=== PATIENT | female | born 1945 | race Caucasian/White ===

== ENCOUNTER 2016-08-21 23:06 | Day surgery (SDC) | payer MEDICARE, BC ==
[2016-08-21] MEDS ORDERED: Morphine INJ* 4 MG/ML 1 ML CARPUJECT IV ONE ×2 (23:27→23:43)
[2016-08-21] MEDS ORDERED: NS 0.9% 1000 ML* 1,000 ML IV ONE (23:43)
[2016-08-21] MEDS ORDERED: Ondansetron INJ* 2 MG/ML VIAL IV ONE (23:43)
[2016-08-21 23:52] LABS: Urine Bilirubin Negative (Negative); Urine Glucose Negative (Negative); Urine Nitrite Negative (Negative)
[2016-08-22 00:17] LABS: ALT 11 U/L (7-52); AST 18 U/L (13-39); Albumin 4.1 g/dL (3.2-5.2); Alkaline Phosphatase 79 U/L (34-104); Anion Gap 9 mmol/L (2-11); BUN/Creatinine Ratio 15.3 (8-20); Blood Urea Nitrogen 17 mg/dL (6-24); C Reactive Protein < 1.00 mg/L (< 5.00); CO2 Carbon Dioxide 24 mmol/L (22-32); Calcium 9.8 mg/dL (8.6-10.3); Chloride 104 mmol/L (101-111); EGFR African American 62.5 (>60); EGFR Non-African American 48.6 (>60); Globulin 2.6 g/dL (2-4); Glucose 125 mg/dL (70-100); Lipase 52 U/L (11.0-82.0); Potassium 3.6 mmol/L (3.5-5.0); Sodium 137 mmol/L (133-145); Total Protein 6.7 g/dL (6.4-8.9)
[2016-08-22 00:19] LABS: Hematocrit 36 % (35-47); Mean Corpuscular HGB Conc 34 g/dl (31-36); Mean Corpuscular Hemoglobin 39 pg (27-31); Mean Corpuscular Volume 116 fL (80-97); Mean Platelet Volume 8 um3 (7.4-10.4); Red Blood Count 3.09 10^6/ul (4.0-5.4); Red Cell Distribution Width 16 % (10.5-15); White Blood Count 5.3 10^3/ul (3.5-10.8)
[2016-08-22 00:30] LABS: Add Diff/Slide Review? Slide Review Added; Comments Flag Yes
--- NOTE | 2016-08-22 00:58 | ED ---
I, Oh,Soohcolt, scribed for Marck Anderson MD on 08/21/16 at 2349 . Abdominal Pain/Female - HPI Summary HPI Summary: This 71 y/o female presents to ED via for acute 1010 left sided abd pain since 2144 PM today. Pt was watching Superbowl at the time of onset. Pain has been constant since then. She reports mild nausea, but denies vomiting, fever, or any dysuria. PMHx does include UC that has been well controlled with Entyvio. Pt denies any recent bout. Primary care involves Dr. Figueroa. She is nondrinker and nonsmoker. - History of Current Complaint Chief Complaint: EDFlankPain Stated Complaint: LEFT FLANK PAIN Time Seen by Provider: 08/21/16 23:38 Hx Obtained From: Patient, Medical Records ?: No Onset/Duration: Still Present Timing: Constant Pain Intensity: 10 Pain Scale Used: 0-10 Numeric Location: Discrete At: RLQ, Discrete At: LUQ Radiates: No Character: Sharp Aggravating Factor(s): Nothing Alleviating Factor(s): Nothing Associated Signs and Symptoms: Positive: Nausea. Negative: Fever, Vomiting Allergies/Adverse Reactions: Allergies Allergy/AdvReac Type Severity Reaction Status Date / Time NSAIDs Allergy N/V- Verified 08/19/16 10:03 ULCERATIVE COLITIS Sulfasalazine Allergy MADE Verified 08/19/16 10:03 [From Azulfidine] ULCERATIVE COLITIS WORSE SEASONAL HAYFEVER Allergy Unknown Uncoded 08/19/16 10:03 Reaction Details PMH/Surg Hx/FS Hx/Imm Hx GI History: Reports: Other GI Disorders - ULCERATIVE COLITIS, RECENT BOUT, TAKING PREDNISONE Musculoskeletal History: Reports: Hx Arthritis - OSTEOARTHRITIS Sensory History: Reports: Hx Cataracts, Hx Contacts or Glasses - GLASSES Denies: Hx Hearing Aid Opthamlomology History: Reports: Hx Cataracts, Hx Contacts or Glasses - GLASSES - Cancer History Hx Chemotherapy: No Hx Radiation Therapy: Yes - Surgical History Surgery Procedure, Year, and Place: 2003 LEFT BREAST LUMPECTOMY X 2, CMCTONSILLECTOMY AGE 15, [place], [place]'S PILONIDAL CYST REMOVED, [place], [place] Hx Anesthesia Reactions: No Infectious Disease History: No Infectious Disease History: Denies: Traveled Outside the [place] in Last 30 Days - Family History Known Family History: Negative: Other - breast CA - Social History Lives: With Family Alcohol Use: None Alcohol Amount: 2-3 drinks/week Hx Substance Use: No Substance Use Type: Reports: None Hx Tobacco Use: No Smoking Status (MU): Never Smoked Tobacco Type: Cigarettes Amount Used/How Often: 1/4 PPD Review of Systems Negative: Fever Positive: Abdominal Pain - left sided, Nausea. Negative: Vomiting Negative: dysuria Negative: Anxious, Depressed All Other Systems Reviewed And Are Negative: Yes Physical Exam Triage Information Reviewed: Yes Vital Signs On Initial Exam: Initial Vitals Temp Pulse Resp BP Pulse Ox 97.3 F 88 22 116/58 100 08/21/16 23:11 08/21/16 23:11 08/21/16 23:11 08/21/16 23:11 08/21/16 23:11 Vital Signs Reviewed: Yes Appearance: Positive: Well-Appearing, Pain Distress - moderately uncomfortable Skin: Positive: Warm Head/Face: Positive: Normal Head/Face Inspection Eyes: Positive: DAVION ENT: Positive: Hearing grossly normal Neck: Positive: Supple Respiratory/Lung Sounds: Positive: Clear to Auscultation, Breath Sounds Present Cardiovascular: Positive: RRR Abdomen Description: Positive: Nontender, Soft Bowel Sounds: Positive: Present Musculoskeletal: Positive: Strength/ROM Intact Neurological: Positive: Alert, Oriented to Person Place, Time Diagnostics - Vital Signs Vital Signs Temp Pulse Resp BP Pulse Ox 08/21/16 23:11 97.3 F 88 22 116/58 100 - Laboratory Lab Results: Lab Results 08/21/16 08/21/16 08/21/16 Range/Units 23:30 23:30 23:30 WBC 5.3 (3.5-10.8) 10^3/ul RBC 3.09 L (4.0-5.4) 10^6/ul Hgb 12.0 (12.0-16.0) g/dl Hct 36 (35-47) % MCV 116 H (80-97) fL MCH 39 H (27-31) pg MCHC 34 (31-36) g/dl RDW 16 H (10.5-15) % Plt Count 341 (150-450) 10^3/ul MPV 8 (7.4-10.4) um3 Neut % (Auto) 66.4 (38-83) % Lymph % (Auto) 23.5 L (25-47) % Guthrie % (Auto) 5.1 (1-9) % Eos % (Auto) 4.3 (0-6) % Baso % (Auto) 0.7 (0-2) % Absolute Neuts (auto) 3.5 (1.5-7.7) 10^3/ul Absolute Lymphs (auto) 1.2 (1.0-4.8) 10^3/ul Absolute Monos (auto) 0.3 (0-0.8) 10^3/ul Absolute Eos (auto) 0.2 (0-0.6) 10^3/ul Absolute Basos (auto) 0 (0-0.2) 10^3/ul Absolute Nucleated RBC 0.03 10^3/ul Nucleated RBC % 0.5 Sodium 137 (133-145) mmol/L Potassium 3.6 (3.5-5.0) mmol/L Chloride 104 (101-111) mmol/L Carbon Dioxide 24 (22-32) mmol/L Anion Gap 9 (2-11) mmol/L BUN 17 (6-24) mg/dL Creatinine 1.11 H (0.51-0.95) mg/dL Est GFR ( Amer) 62.5 (>60) Est GFR (Non-Af Amer) 48.6 (>60) BUN/Creatinine Ratio 15.3 (8-20) Glucose 125 H (70-100) mg/dL Lactic Acid 2.0 (0.5-2.0) mmol/L Calcium 9.8 (8.6-10.3) mg/dL Magnesium 2.0 (1.9-2.7) mg/dL Total Bilirubin 0.70 (0.2-1.0) mg/dL AST 18 (13-39) U/L ALT 11 (7-52) U/L Alkaline Phosphatase 79 (34-104) U/L C-Reactive Protein < 1.00 (< 5.00) mg/L Total Protein 6.7 (6.4-8.9) g/dL Albumin 4.1 (3.2-5.2) g/dL Globulin 2.6 (2-4) g/dL Albumin/Globulin Ratio 1.6 (1-3) Lipase 52 (11.0-82.0) U/L Urine Color Urine Appearance Urine pH (5-9) Ur Specific [place] (1.010-1.030) Urine Protein (Negative) Urine Ketones (Negative) Urine Blood (Negative) Urine Nitrate (Negative) Urine Bilirubin (Negative) Urine Urobilinogen (Negative) Ur Leukocyte Esterase (Negative) Urine Glucose (Negative) 08/21/16 Range/Units 23:40 WBC (3.5-10.8) 10^3/ul RBC (4.0-5.4) 10^6/ul Hgb (12.0-16.0) g/dl Hct (35-47) % MCV (80-97) fL MCH (27-31) pg MCHC (31-36) g/dl RDW (10.5-15) % Plt Count (150-450) 10^3/ul MPV (7.4-10.4) um3 Neut % (Auto) (38-83) % Lymph % (Auto) (25-47) % Guthrie % (Auto) (1-9) % Eos % (Auto) (0-6) % Baso % (Auto) (0-2) % Absolute Neuts (auto) (1.5-7.7) 10^3/ul Absolute Lymphs (auto) (1.0-4.8) 10^3/ul Absolute Monos (auto) (0-0.8) 10^3/ul Absolute Eos (auto) (0-0.6) 10^3/ul Absolute Basos (auto) (0-0.2) 10^3/ul Absolute Nucleated RBC 10^3/ul Nucleated RBC % Sodium (133-145) mmol/L Potassium (3.5-5.0) mmol/L Chloride (101-111) mmol/L Carbon Dioxide (22-32) mmol/L Anion Gap (2-11) mmol/L BUN (6-24) mg/dL Creatinine (0.51-0.95) mg/dL Est GFR ( Amer) (>60) Est GFR (Non-Af Amer) (>60) BUN/Creatinine Ratio (8-20) Glucose (70-100) mg/dL Lactic Acid (0.5-2.0) mmol/L Calcium (8.6-10.3) mg/dL Magnesium (1.9-2.7) mg/dL Total Bilirubin (0.2-1.0) mg/dL AST (13-39) U/L ALT (7-52) U/L Alkaline Phosphatase (34-104) U/L C-Reactive Protein (< 5.00) mg/L Total Protein (6.4-8.9) g/dL Albumin (3.2-5.2) g/dL Globulin (2-4) g/dL Albumin/Globulin Ratio (1-3) Lipase (11.0-82.0) U/L Urine Color Straw Urine Appearance Clear Urine pH 8.0 (5-9) Ur Specific [place] 1.008 L (1.010-1.030) Urine Protein Negative (Negative) Urine Ketones Negative (Negative) Urine Blood Negative (Negative) Urine Nitrate Negative (Negative) Urine Bilirubin Negative (Negative) Urine Urobilinogen Negative (Negative) Ur Leukocyte Esterase Negative (Negative) Urine Glucose Negative (Negative) Result Diagrams: 08/21/16 23:30 08/21/16 23:30 Lab Statement: Any lab studies that have been ordered have been reviewed, and results considered in the medical decision making process. - CT Ab/P CT Interpretation: Positive (See Comments) - Right ovarian 3.4 cm complex cystic process. If clinically indicated recommend correcation with a pelvic US. Homero left hydronephrosis with a 4 mm stone in the distal left ureter at the left UVJ. CT Interpretation Completed By: Radiologist Re-Evaluation - Re-Evaluation First Eval Re-Evaluation Time: 05:42 Comment: in room to update pt and on plan of care involving urologist 's consultation. Pt's pain was resolved with morphine, but pain has come back at this moment. Zofran given to control pt's n/v. Abdominal Pain Fem Course/Dx - Course Course Of Treatment: This 71 y/o female presents to ED with chief complaint of left sided abd pain since 2144 PM tonight. Pain is rated 10/10. Bloodwork is wnl except for elevated creatinine of 1.11. CT Ab/P indicates 4 mm UVJ stone at left ureter as well as incidental finding of 3.4 cm complex cystic process at right ovary. UA is wnl. Urologist consultation is pending at this point. - Diagnoses Provider Diagnoses: Renal colic - Provider Notifications Instructed by Provider To: Admit As Inpatient Discharge - Discharge Plan Condition: Stable Disposition: ADMITTED TO [facility] The documentation as recorded by the Jorje theodore Soohyun accurately reflects the service I personally performed and the decisions made by me, Marck Anderson MD.
[2016-08-22 01:08] LABS: Macrocytosis 2+
[2016-08-22] MEDS ORDERED: Iodixanol* (CONTRAST) 320 MG/ML 100 ML SDV IV ONE (01:47)
[2016-08-22] MEDS ORDERED: Ondansetron INJ* 2 MG/ML VIAL IV ONE (02:41)
[2016-08-22] MEDS ORDERED: Morphine INJ* 4 MG/ML 1 ML CARPUJECT IV ONE (02:42)
[2016-08-22] MEDS ORDERED: Ondansetron INJ* 2 MG/ML VIAL ONE ×2 (02:43→10:29)
[2016-08-22] MEDS ORDERED: NS 0.9% 1000 ML* 1,000 ML IV ONE (03:30)
[2016-08-22] MEDS ORDERED: Ketorolac INJ* 30 MG/ML 1 ML VIAL IV PUSH ONE (03:30)
[2016-08-22] MEDS ORDERED: Metoclopramide IV* 5 MG/ML 2 ML VIAL IV ONE (05:40)
--- NOTE | 2016-08-22 07:49 | RAD ---
CLINICAL HISTORY: Left lower quadrant pain COMPARISON: None TECHNIQUE: Contrast enhanced CT examination of the abdomen and pelvis from the lung bases through the initial tuberosities. The patient received 79 mL Omnipaque 300 intravenously prior to imaging.The patient received oral contrast as well prior to imaging. FINDINGS: VISUALIZED LUNG BASES: The visualized lung bases are grossly clear. There is no pleural effusion. ABDOMEN AND PELVIS: The liver, spleen, pancreas and adrenal glands are grossly normal in appearance. The gallbladder is normal. The right kidney is normal in appearance without focal mass, calcification or signs of hydronephrosis. There is mild to moderate left-sided hydronephrosis with moderate left perinephric stranding at the left ureterovesical junction there is a 4 mm calcification (axial image 69 and coronal image 55). On the delayed phase imaging there is delayed excretion in the left ureter and collecting system relative to the right. The oral contrast has only progressed as far as the proximal small bowel which limits evaluation of the distal small bowel and colon. The small and large bowel are not distended. The patient's normal appendix is identified in the right lower quadrant (coronal image 39). There is no gross retroperitoneal or mesenteric lymphadenopathy. In the right adnexa there is a 3 cm fluid density structure (axial image 62). Otherwise the pelvic viscera is normal in appearance. The mildly calcified abdominal aorta and iliac arteries are normal in course and diameter. Degenerative changes include multilevel loss of intervertebral disc height involving the lower thoracic and lumbar spine.There are no sinister bone lesions. IMPRESSION: 1. Mild to moderate left-sided hydronephrosis, perinephric stranding and delayed urinary excretion with a 4 mm calcification located at the left ureterovesical junction. 2. 3 cm fluid density structure in the right pelvic adnexa which could represent an ovarian or paraovarian cyst. The chronicity of this structure is unknown in the absence of prior pelvic imaging and this is considered an abnormal finding in a postmenopausal woman. On a nonemergent basis further characterization can be made with pelvic ultrasound. 3. Additional chronic and degenerative changes as described in the body of the report.
[2016-08-22] MEDS ORDERED: cefTRIAXone(*) 2 GM ADDV.VIAL IVPB ONE (10:09)
[2016-08-22] MEDS ORDERED: Iohexol 180 (CONTRAST) 10 ML SDV IV ONE (10:23)
[2016-08-22] MEDS ORDERED: fentaNYL* 50 MCG/ML 2 ML VIAL (100 MCG VIAL) ONE (10:28)
[2016-08-22] MEDS ORDERED: Midazolam* 1 MG/ML 2 ML VIAL (2 MG) ONE (10:28)
[2016-08-22] MEDS ORDERED: Propofol* 10 MG/ML 20 ML BTL IV PUSH ONE (10:29)
[2016-08-22] MEDS ORDERED: Dexamethasone IV* 4 MG/ML 1 ML (4 MG) ONE (10:29)
[2016-08-22] MEDS ORDERED: Famotidine IV* 10 MG/ML 2 ML (20 mg) ONE (10:29)
[2016-08-22] MEDS ORDERED: Ketorolac INJ* 30 MG/ML 1 ML VIAL ONE (10:29)
[2016-08-22] MEDS ORDERED: Gentamicin ADULT (*) 140 MG in NS 0.9% 100 ML* 100 ML IVPB ONE (11:00)
[2016-08-22 12:53] VITALS: BP 102/64
--- NOTE | 2016-08-22 20:25 | OP ---
DATE OF OPERATION: 08/22/16 - [facility] DATE OF : [birth year] - AGE: 71 years, Female. SURGEON: Rodolfo Fernández MD ANESTHESIOLOGIST: Dr. Fonseca. ANESTHESIA: General. PRE-OP DIAGNOSES: 1. Left hydronephrosis. 2. Obstructing left ureteral calculus. POST-OP DIAGNOSES: 1. Left hydronephrosis. 2. Obstructing left ureteral calculus. OPERATIVE PROCEDURES: 1. Cystoscopy. 2. Left retrograde pyelogram. 3. Left ureteroscopy. 4. Stone fragmentation and removal. 5. Left stent insertion. COMPLICATIONS: None. INDICATIONS: Melinda Chatman is a 71-year-old lady who presented to the emergency room with severe left flank pain and nausea. She was noted to have an obstructing calculus in the left distal ureter. I was called because she required several doses of intravenous analgesics; and, in spite of that, they were not able to adequately control her pain and she is now being brought in for gentle left ureteroscopy. OPERATIVE FINDINGS: 1. Normal-appearing bladder. 2. Two calculi in the left distal ureter with left hydronephrosis and proximal hydroureter. POSTOPERATIVE CONDITION: Stable. STENT USED: 6-Jamaican stent, left ureter. DESCRIPTION OF PROCEDURE: After induction of general anesthesia, the patient was placed in dorsal lithotomy position. Sequential compression devices were in place and functioning. Initial cystoscopy revealed a normal-appearing bladder. A guidewire was introduced into the left ureter. After the introduction of the guidewire, there was significant drainage of urine noted suggesting high-grade obstruction. Retrograde pyelogram revealed mild fullness of the left collecting system and the left proximal ureter. A 6-Jamaican semi- rigid ureteroscope was introduced and advanced under direct vision. A couple of centimeters above the ureterovesical junction, there were 2 calculi noted. These were engaged using a three-pronged grasper and were fairly soft and broken to 3 to 4 pieces. All of the pieces were engaged and removed and sent for analysis. The ureteroscope was advanced to the level of the mid left ureter to make sure there were no additional calculi and none were noted. A 6- Jamaican stent was introduced and positioned under fluoroscopy with good proximal and distal positioning obtained. The patient tolerated the procedure satisfactorily and was transferred back to the recovery area in stable condition. CC: Sherwin Tidwell MD * [id number]/[facility] #: [id number] KASEY
--- NOTE | 2016-08-23 11:50 | RAD ---
INDICATION: LEFT ureteral stent placement. COMPARISON: August 22, 2016 CT. TECHNIQUE: 4 seconds fluoroscopy. FINDINGS: LEFT retrograde pyelogram demonstrates mild caliectasis. LEFT ureteral stent placed with decompression of the collecting system. IMPRESSION: Procedural fluoroscopy. CPT II Codes: 6045F
== END 2016-08-22 13:04 | disposition home or self-care (01) ==
LOC: ED 23:06 → OR 08-22 08:36
PROVIDERS: ATTEND Urology
DX: N13.2 Hydronephrosis with renal and ureteral calculous obstruction (principal); Z87.891 Personal history of nicotine dependence
CPT/HCPCS: 36415; 74177; 74420; 80053; 81003; 82365; 83605; 83690; 83735; 85025; 86140; 88300; 96374; 96375; 99283; C1876; J0696; J1100; J1580; J1885; J2250; J2270; J2405; J2704; J2765; J3010; Q9967